=== PATIENT | male | born 1945 | race Caucasian/White ===

== ENCOUNTER 2016-12-20 20:00 | Emergency (ER) | payer OTHER ==
[~2016-12-20] VITALS: Ht 185.4 cm; Wt 118.2 kg
[~2016-12-20 20:00] MED LIST: COMBIH IH; PANT40TA25 PO
[2016-12-20] MEDS ORDERED: GuaiFENesin/D-METHORPHAN [SUGAR-FREE] 200-20MG/10 ML SYRUP UDCUP PO ONE (21:30)
[2016-12-20] MEDS ORDERED: OSELTAMIVIR PHOSPHATE 75 MG CAPSULE PO ONE (21:30)
[2016-12-20] MEDS ORDERED: ACETAMINOPHEN 325 MG TABLET PO ONE (21:30)
[2016-12-20 21:39] VITALS: BP 144/64
[2016-12-20 21:54] LABS: INFLUENZA TYPE B NEGATIVE FOR TYPE B (NEGATIVE)
== END 2016-12-20 22:27 | disposition home or self-care (01) ==
LOC: EMS 20:02
DX: J06.9 Acute upper respiratory infection, unspecified (principal); R68.83 Chills (without fever); M79.1 Myalgia; J44.9 Chronic obstructive pulmonary disease, unspecified; Z87.891 Personal history of nicotine dependence
CPT/HCPCS: 87804; 99284

== ENCOUNTER 2017-01-01 13:03 | Inpatient (IN) | payer MEDICARE, OTHER ==
[~2017-01-01] VITALS: Ht 198.1 cm; Wt 99.8 kg
[~2017-01-01 13:03] MED LIST changes: -PANT40TA25 PO
[2017-01-01] MEDS ORDERED: DILTIAZEM HCL 5 MG/ML 5 ML VIAL IVP ONE ×2 (13:15→14:00)
[2017-01-01] MEDS ORDERED: GUAIFCF5L PO (13:17)
[2017-01-01 13:30] LABS: HEMATOCRIT 41.4 % (41-53); HEMOGLOBIN 13.6 g/dL (13.5-17.5); MEAN CORPUSCULAR HEMOGLOBIN 29.3 pg (26.0-34.0); MEAN CORPUSCULAR HGB CONC 32.9 G/dL (31.0-37.0); MEAN CORPUSCULAR VOLUME 89 fL (80-100); PLATELET COUNT (AUTO) 306 K/uL (150-450); RED BLOOD CELL COUNT(AUTO) 4.65 MIL/uL (4.50-5.90); RED CELL DISTRIBUTION WIDTH 13.9 % (11.5-14.5)
[2017-01-01 13:41] LABS: ANION GAP 11 mmol/L (8-16); CALCIUM, TOTAL 8.7 mg/dL (8.8-10.5); CARBON DIOXIDE 25 mmol/L (22-29); CHLORIDE 103 mmol/L (98-107); CREATININE 1.95 mg/dL (0.60-1.30); GLOMERULAR FILTR. RATE CALC 34 mL/min (>60); POTASSIUM 4.5 mmol/L (3.5-5.1); SODIUM SERUM 139 mmol/L (136-145); UREA NITROGEN, BLOOD 27 mg/dL (7-18)
[2017-01-01 13:44] LABS: INR 1.1 (0.9-1.1); PROTHROMBIN TIME 11.2 SEC (9.4-11.6)
[2017-01-01] MEDS: DILTIAZEM HCL 125 MG in DEXTROSE 5%-WATER 100 ML IV PRN ×2 (13:51→23:56)
[2017-01-01 13:59] LABS: BAND NEUTROPHILS % (MANUAL) 2 % (1-5); EOSINOPHILS % (MANUAL) 1 % (1-6); LYMPHOCYTES % (MANUAL) 7 % (22-44); TOTAL CELLS COUNTED 100
[2017-01-01 14:00] LABS: B-TYPE NATRIURETIC PEPTIDE 76 pg/mL (0-100)
[2017-01-01] MEDS ORDERED: SODIUM CHLORIDE 0.9% 500 ML IV ONE ×2 (14:15→16:15)
[2017-01-01 14:16] LABS: ALANINE AMINOTRANSFERASE 21 U/L (12-78); ALBUMIN 3.4 g/dL (3.4-5.0); ASPARTATE AMINOTRANSFERASE 16 U/L (15-37); BILIRUBIN,TOTAL 0.6 mg/dL (0.1-1.0); CREATINE KINASE MB 2.8 ng/mL (0-5); CREATINE KINASE, TOTAL 76 U/L (39-308); TOTAL PROTEIN, SERUM 7.6 g/dL (6.4-8.2)
[2017-01-01 14:39] LABS: INFLUENZA TYPE B NEGATIVE FOR TYPE B (NEGATIVE)
[2017-01-01] MEDS ORDERED: CefTRIAXone 1 GM/DEXTROSE 50 ML IV ONE (15:45)
[2017-01-01] MEDS ORDERED: AZITHROMYCIN 500 MG/NS 250 ML IV ONE (15:45)
[2017-01-01] MEDS ORDERED: ZOLPIDEM TARTRATE 10 MG TABLET PO PRN (16:15)
[2017-01-01] MEDS ORDERED: ALBUTEROL SULFATE 2.5 MG/0.5 ML NEB SOLUTION NEB PRN (16:15)
[2017-01-01] MEDS ORDERED: OxyCODONE HCL/ACETAMINOPHEN 5-325 MG TABLET PO PRN (16:15)
[2017-01-01] MEDS ORDERED: ASPIRIN 81 MG CHEWABLE TABLET PO ONE (16:15)
[2017-01-01] MEDS ORDERED: ACETAMINOPHEN 325 MG TABLET PO PRN (16:15)
[2017-01-01] MEDS: DEXTROSE 5%-0.45% SODIUM CHL 1,000 ML IV SCH (16:34)
[2017-01-01 16:42] LABS: APPEARANCE,URINE CLEAR (CLEAR); GLUCOSE, URINE (UA) NEGATIVE (NEGATIVE); KETONES,URINE NEGATIVE (NEGATIVE); LEUKOCYTE ESTERASE ,URINE NEGATIVE (NEGATIVE); OCCULT BLOOD,URINE TRACE (NEGATIVE); PH,URINE 5.5 (5.0-8.0); PROTEIN,URINE TRACE (NEGATIVE)
[2017-01-01 16:45] LABS: ADD UA MICROSCOPIC YES
[2017-01-01] MEDS: ALBUTEROL SULFATE 2.5 MG/0.5 ML NEB SOLUTION NEB SCH ×2 (16:50→19:29)
[2017-01-01] MEDS: IPRATROPIUM BROMIDE 0.5 MG/2.5 ML NEB SOLUTION NEB SCH ×2 (16:51→19:29)
[2017-01-01 16:59] LABS: RBC,URINE 0-2 /HPF (0-2); WBC,URINE None Seen /HPF (0-5)
[2017-01-01 21:04] VITALS: BP 144/66
[2017-01-01] MEDS ORDERED: ClonazePAM 1 MG TABLET PO ONE (22:30)
[2017-01-01] MEDS ORDERED: GUAI600T35 PO (22:32)
[2017-01-01] MEDS ORDERED: ACET-784 PO (22:32)
[2017-01-01] MEDS ORDERED: OSEL75CA17 PO (22:32)
[2017-01-01] MEDS ORDERED: GUAIF600 PO (22:33)
[2017-01-01] MEDS: HEPARIN SODIUM,PORCINE 5,000 UNITS/ML VIAL SQ SCH (23:28)
[2017-01-01] MEDS: GuaiFENesin/D-METHORPHAN [SUGAR-FREE] 200-20MG/10 ML SYRUP UDCUP PO PRN (23:56)
[2017-01-02] VITALS (7 sets, daily range): BP systolic 106–136; BP diastolic 54–74
[2017-01-02] MEDS ORDERED: GuaiFENesin/D-METHORPHAN [SUGAR-FREE] 200-20MG/10 ML SYRUP UDCUP PO SCH
[2017-01-02] MEDS ORDERED: -PHARMACY VACCINE NOTE- MISC ONE ×2 (00:15)
[2017-01-02] MEDS ORDERED: INFLUENZA VIRUS VACCINE QVS 2016-17 (3YR+)/PF 60 MCG/0.5 ML SYRINGE IM ONE (00:15)
[2017-01-02] MEDS ORDERED: PNEUMOCOCCAL VACCINE POLYVALENT 0.5 ML VIAL [PPSV23] IM ONE (00:15)
[2017-01-02] MEDS: IPRATROPIUM BROMIDE 0.5 MG/2.5 ML NEB SOLUTION NEB SCH ×4 (02:16→20:43)
[2017-01-02] MEDS: ALBUTEROL SULFATE 2.5 MG/0.5 ML NEB SOLUTION NEB SCH ×4 (02:16→20:43)
[2017-01-02] MEDS: DEXTROSE 5%-0.45% SODIUM CHL 1,000 ML IV SCH ×2 (04:31→18:11)
[2017-01-02] MEDS: GuaiFENesin/D-METHORPHAN [SUGAR-FREE] 200-20MG/10 ML SYRUP UDCUP PO PRN ×2 (06:56→20:16)
[2017-01-02 07:39] LABS: BASOPHILS # (AUTO) 0.05 K/uL (0.00-0.20); BASOPHILS % (AUTO) 0.3 % (0.0-2.0); EOSINOPHILS # (AUTO) 0.18 K/uL (0.00-0.70); EOSINOPHILS % (AUTO) 1.12 % (1.0-6.0); HEMATOCRIT 35.2 % (41-53); HEMOGLOBIN 11.7 g/dL (13.5-17.5); LYMPHOCYTES # (AUTO) 1.3 K/uL (1.0-4.8); LYMPHOCYTES % (AUTO) 7.9 % (22.0-44.0); MEAN CORPUSCULAR HGB CONC 33.3 G/dL (31.0-37.0); MEAN CORPUSCULAR VOLUME 90 fL (80-100); NEUTROPHILS # (AUTO) 13.9 K/uL (1.8-7.7); NEUTROPHILS % (AUTO) 84.7 % (40.0-70.0); PLATELET COUNT (AUTO) 406 K/uL (150-450); RED BLOOD CELL COUNT(AUTO) 3.91 MIL/uL (4.50-5.90); RED CELL DISTRIBUTION WIDTH 13.7 % (11.5-14.5); WHITE BLOOD COUNT (AUTO) 16.4 K/uL (4.5-11.0)
[2017-01-02 08:07] LABS: ALBUMIN 2.9 g/dL (3.4-5.0); BILIRUBIN,TOTAL 0.7 mg/dL (0.1-1.0); CALCIUM, TOTAL 8.3 mg/dL (8.8-10.5); CREATININE 1.72 mg/dL (0.60-1.30); POTASSIUM 3.7 mmol/L (3.5-5.1); TOTAL PROTEIN, SERUM 6.8 g/dL (6.4-8.2)
[2017-01-02 08:52] LABS: THYROID STIMULATING HORMONE 0.57 uIU/mL (0.36-3.74)
[2017-01-02] MEDS: PANTOPRAZOLE SODIUM 40 MG DR TABLET PO SCH (09:59)
[2017-01-02] MEDS: HEPARIN SODIUM,PORCINE 5,000 UNITS/ML VIAL SQ SCH ×3 (09:59→23:33)
[2017-01-02] MEDS: DILTIAZEM HCL CD 180 MG ER CAPSULE PO SCH (10:33)
[2017-01-02] MEDS: DILTIAZEM HCL 125 MG in DEXTROSE 5%-WATER 100 ML IV SCH ×2 (10:34→21:30)
[2017-01-02] MEDS: CefTRIAXone 1 GM/DEXTROSE 50 ML IV SCH (16:24)
[2017-01-02] MEDS ORDERED: MORPHINE SULFATE 100 MG/NS/PF 100 ML IV PRN (19:57)
[2017-01-02] MEDS: ClonazePAM 1 MG TABLET PO SCH (22:27)
[2017-01-03] MEDS: IPRATROPIUM BROMIDE 0.5 MG/2.5 ML NEB SOLUTION NEB SCH ×4 (02:16→20:00)
[2017-01-03] MEDS: ALBUTEROL SULFATE 2.5 MG/0.5 ML NEB SOLUTION NEB SCH ×2 (02:16→09:08)
[2017-01-03] MEDS: GuaiFENesin/D-METHORPHAN [SUGAR-FREE] 200-20MG/10 ML SYRUP UDCUP PO PRN ×4 (03:18→23:20)
[2017-01-03 04:51] VITALS: BP 107/42
[2017-01-03] MEDS: DEXTROSE 5%-0.45% SODIUM CHL 1,000 ML IV SCH (06:15)
[2017-01-03 07:34] VITALS: BP 126/71
[2017-01-03 08:02] LABS: BASOPHILS # (AUTO) 0.03 K/uL (0.00-0.20); BASOPHILS % (AUTO) 0.2 % (0.0-2.0); EOSINOPHILS # (AUTO) 0.35 K/uL (0.00-0.70); EOSINOPHILS % (AUTO) 3.03 % (1.0-6.0); HEMATOCRIT 35.6 % (41-53); HEMOGLOBIN 11.7 g/dL (13.5-17.5); LYMPHOCYTES # (AUTO) 1.1 K/uL (1.0-4.8); LYMPHOCYTES % (AUTO) 9.9 % (22.0-44.0); MEAN CORPUSCULAR HEMOGLOBIN 29.5 pg (26.0-34.0); MEAN CORPUSCULAR HGB CONC 32.9 G/dL (31.0-37.0); MEAN CORPUSCULAR VOLUME 90 fL (80-100); MONOCYTES # (AUTO) 0.8 K/uL (0.1-1.0); MONOCYTES % (AUTO) 7.1 % (2.0-9.0); NEUTROPHILS # (AUTO) 9.2 K/uL (1.8-7.7); NEUTROPHILS % (AUTO) 79.7 % (40.0-70.0); PLATELET COUNT (AUTO) 399 K/uL (150-450); RED BLOOD CELL COUNT(AUTO) 3.96 MIL/uL (4.50-5.90); RED CELL DISTRIBUTION WIDTH 14.2 % (11.5-14.5); WHITE BLOOD COUNT (AUTO) 11.5 K/uL (4.5-11.0)
[2017-01-03 08:29] LABS: ALBUMIN 2.8 g/dL (3.4-5.0); BILIRUBIN,TOTAL 0.3 mg/dL (0.1-1.0); CALCIUM, TOTAL 8.7 mg/dL (8.8-10.5); CREATININE 1.72 mg/dL (0.60-1.30); POTASSIUM 4.2 mmol/L (3.5-5.1); TOTAL PROTEIN, SERUM 6.6 g/dL (6.4-8.2)
[2017-01-03] MEDS: HEPARIN SODIUM,PORCINE 5,000 UNITS/ML VIAL SQ SCH ×3 (09:19→23:16)
[2017-01-03] MEDS: PANTOPRAZOLE SODIUM 40 MG DR TABLET PO SCH (09:19)
[2017-01-03] MEDS: DILTIAZEM HCL CD 180 MG ER CAPSULE PO SCH (09:19)
[2017-01-03 11:31] VITALS: BP 126/80
[2017-01-03 15:37] VITALS: BP 122/78
[2017-01-03] MEDS: CefTRIAXone 1 GM/DEXTROSE 50 ML IV SCH (17:00)
[2017-01-03 19:35] VITALS: BP 129/69
[2017-01-03] MEDS: LISINOPRIL 5 MG TABLET PO SCH (20:05)
[2017-01-03] MEDS: ClonazePAM 1 MG TABLET PO SCH (20:05)
[2017-01-04] VITALS (7 sets, daily range): BP systolic 94–150; BP diastolic 48–94
[2017-01-04] MEDS: IPRATROPIUM BROMIDE 0.5 MG/2.5 ML NEB SOLUTION NEB SCH ×4 (02:00→20:49)
[2017-01-04] MEDS: GuaiFENesin/D-METHORPHAN [SUGAR-FREE] 200-20MG/10 ML SYRUP UDCUP PO PRN ×3 (05:59→23:32)
[2017-01-04 06:36] LABS: BASOPHILS % (AUTO) 0.4 % (0.0-2.0); EOSINOPHILS % (AUTO) 5.9 % (1.0-6.0); HEMATOCRIT 35.6 % (41-53); HEMOGLOBIN 11.6 g/dL (13.5-17.5); LYMPHOCYTES # (AUTO) 1.3 K/uL (1.0-4.8); LYMPHOCYTES % (AUTO) 11.4 % (22.0-44.0); MEAN CORPUSCULAR HEMOGLOBIN 29.4 pg (26.0-34.0); MEAN CORPUSCULAR HGB CONC 32.5 G/dL (31.0-37.0); MEAN CORPUSCULAR VOLUME 90 fL (80-100); MONOCYTES # (AUTO) 0.9 K/uL (0.1-1.0); MONOCYTES % (AUTO) 7.8 % (2.0-9.0); NEUTROPHILS # (AUTO) 8.5 K/uL (1.8-7.7); NEUTROPHILS % (AUTO) 74.5 % (40.0-70.0); PLATELET COUNT (AUTO) 411 K/uL (150-450); RED BLOOD CELL COUNT(AUTO) 3.93 MIL/uL (4.50-5.90); RED CELL DISTRIBUTION WIDTH 13.4 % (11.5-14.5); WHITE BLOOD COUNT (AUTO) 11.4 K/uL (4.5-11.0)
[2017-01-04 07:15] LABS: ALBUMIN 2.7 g/dL (3.4-5.0); BILIRUBIN,TOTAL 0.3 mg/dL (0.1-1.0); CALCIUM, TOTAL 8.8 mg/dL (8.8-10.5); CREATININE 1.82 mg/dL (0.60-1.30); MAGNESIUM 1.9 mg/dL (1.80-2.40); POTASSIUM 4.4 mmol/L (3.5-5.1); TOTAL PROTEIN, SERUM 6.6 g/dL (6.4-8.2)
[2017-01-04] MEDS: PANTOPRAZOLE SODIUM 40 MG DR TABLET PO SCH (08:52)
[2017-01-04] MEDS: DILTIAZEM HCL CD 120 MG ER CAPSULE PO SCH (08:53)
[2017-01-04] MEDS: HEPARIN SODIUM,PORCINE 5,000 UNITS/ML VIAL SQ SCH ×3 (08:54→23:32)
[2017-01-04] MEDS ORDERED: CLON1TAB PO (13:11)
[2017-01-04] MEDS ORDERED: DILT120C3 PO (13:12)
[2017-01-04] MEDS ORDERED: LISI-660 PO (13:14)
[2017-01-04] MEDS ORDERED: CIP250 PO (13:16)
[2017-01-04] MEDS ORDERED: IPRAHFA IH (13:17)
[2017-01-04] MEDS: CefTRIAXone 1 GM/DEXTROSE 50 ML IV SCH (15:19)
[2017-01-04] MEDS: LISINOPRIL 5 MG TABLET PO SCH (19:42)
[2017-01-04] MEDS: ClonazePAM 1 MG TABLET PO SCH (19:42)
[2017-01-05] MEDS: IPRATROPIUM BROMIDE 0.5 MG/2.5 ML NEB SOLUTION NEB SCH ×3 (02:55→14:00)
[2017-01-05] MEDS: GuaiFENesin/D-METHORPHAN [SUGAR-FREE] 200-20MG/10 ML SYRUP UDCUP PO PRN ×2 (03:37→08:36)
[2017-01-05 04:17] VITALS: BP 98/55
[2017-01-05 06:38] LABS: BASOPHILS % (AUTO) 0.3 % (0.0-2.0); EOSINOPHILS % (AUTO) 4.8 % (1.0-6.0); HEMOGLOBIN 12.5 g/dL (13.5-17.5); LYMPHOCYTES # (AUTO) 1.8 K/uL (1.0-4.8); LYMPHOCYTES % (AUTO) 17.3 % (22.0-44.0); MEAN CORPUSCULAR HEMOGLOBIN 29.1 pg (26.0-34.0); MEAN CORPUSCULAR VOLUME 91 fL (80-100); MONOCYTES # (AUTO) 0.9 K/uL (0.1-1.0); NEUTROPHILS # (AUTO) 7.4 K/uL (1.8-7.7); NEUTROPHILS % (AUTO) 69.6 % (40.0-70.0); PLATELET COUNT (AUTO) 492 K/uL (150-450); RED CELL DISTRIBUTION WIDTH 13.5 % (11.5-14.5); WHITE BLOOD COUNT (AUTO) 10.7 K/uL (4.5-11.0)
[2017-01-05 07:37] LABS: ALBUMIN 3.1 g/dL (3.4-5.0); BILIRUBIN,TOTAL 0.5 mg/dL (0.1-1.0); POTASSIUM 4.3 mmol/L (3.5-5.1); TOTAL PROTEIN, SERUM 7.4 g/dL (6.4-8.2)
[2017-01-05 08:00] VITALS: BP 114/61
[2017-01-05] MEDS: DILTIAZEM HCL CD 120 MG ER CAPSULE PO SCH (08:36)
[2017-01-05] MEDS: PANTOPRAZOLE SODIUM 40 MG DR TABLET PO SCH (08:36)
[2017-01-05] MEDS: HEPARIN SODIUM,PORCINE 5,000 UNITS/ML VIAL SQ SCH (08:36)
[2017-01-05] MEDS ORDERED: DEXT15SY3 PO (13:12)
== END 2017-01-05 14:00 | disposition home or self-care (01) | DRG 872 ==
LOC: EMS 13:04 → 5N 18:24 → 6N 01-04 18:27
PROVIDERS: ADMIT Hospitalist; ATTEND Hospitalist
PROC: 3E0234Z Introduction of Serum, Toxoid and Vaccine into Muscle, Percutaneous Approach (ICD-10-PCS; principal; 2017-01-02)
DX: A41.9 Sepsis, unspecified organism (principal); J44.1 Chronic obstructive pulmonary disease with (acute) exacerbation; E44.1 Mild protein-calorie malnutrition; I48.91 Unspecified atrial fibrillation; N18.9 Chronic kidney disease, unspecified; I49.3 Ventricular premature depolarization; E88.09 Other disorders of plasma-protein metabolism, not elsewhere classified; D64.9 Anemia, unspecified; Z87.891 Personal history of nicotine dependence; Z23 Encounter for immunization; Z98.890 Other specified postprocedural states; Z87.01 Personal history of pneumonia (recurrent); Z68.25 Body mass index [BMI] 25.0-25.9, adult
CPT/HCPCS: 82607; 82746; 83540; 83550; 83735; 84443; 85379; 87040; 87804; 90471; 93005; 93306; 94640; 96361; 96365; 96368; 96374; 99291; J0456; J0696; J1644; J3490; J7040; J7060

== ENCOUNTER 2017-01-23 17:50 | Inpatient (IN) | payer OTHER ==
[~2017-01-23] VITALS: Ht 185.4 cm; Wt 92.8 kg
[~2017-01-23 17:50] MED LIST changes: +CIP250 PO; +CLON1TAB PO; -COMBIH IH; +DEXT15SY3 PO; +DILT120C3 PO; +GUAIF600 PO; +IPRAHFA IH; +LISI-660 PO; +OSEL75CA17 PO
[2017-01-23] MEDS ORDERED: ONDANSETRON HCL 4 MG/2 ML VIAL IVP ONE ×2 (19:00→19:15)
[2017-01-23] MEDS ORDERED: SODIUM CHLORIDE 0.9% 1,000 ML IV ONE (19:00)
[2017-01-23 19:03] LABS: BASOPHILS # (AUTO) 0.07 K/uL (0.00-0.20); BASOPHILS % (AUTO) 0.7 % (0.0-2.0); EOSINOPHILS # (AUTO) 0.09 K/uL (0.00-0.70); EOSINOPHILS % (AUTO) 0.86 % (1.0-6.0); HEMATOCRIT 44.5 % (41-53); HEMOGLOBIN 14.7 g/dL (13.5-17.5); LYMPHOCYTES # (AUTO) 1.2 K/uL (1.0-4.8); LYMPHOCYTES % (AUTO) 12.2 % (22.0-44.0); MEAN CORPUSCULAR HEMOGLOBIN 29.4 pg (26.0-34.0); MEAN CORPUSCULAR HGB CONC 33.1 G/dL (31.0-37.0); MEAN CORPUSCULAR VOLUME 89 fL (80-100); MONOCYTES # (AUTO) 0.7 K/uL (0.1-1.0); MONOCYTES % (AUTO) 6.7 % (2.0-9.0); NEUTROPHILS % (AUTO) 79.5 % (40.0-70.0); PLATELET COUNT (AUTO) 441 K/uL (150-450); RED BLOOD CELL COUNT(AUTO) 5.02 MIL/uL (4.50-5.90); RED CELL DISTRIBUTION WIDTH 14.2 % (11.5-14.5)
[2017-01-23 19:13] LABS: CALCIUM, TOTAL 9.3 mg/dL (8.8-10.5); CREATININE 1.98 mg/dL (0.60-1.30); POTASSIUM 4.2 mmol/L (3.5-5.1)
[2017-01-23] MEDS ORDERED: SODIUM CHLORIDE 0.9% 500 ML IV ONE (19:15)
[2017-01-23 19:21] LABS: ALBUMIN 4.2 g/dL (3.4-5.0); TOTAL PROTEIN, SERUM 7.9 g/dL (6.4-8.2)
[2017-01-23] MEDS ORDERED: 0.9% SODIUM CHLORIDE 10 ML SYRINGE IVP PRN (21:15)
[2017-01-23] MEDS ORDERED: ONDANSETRON HCL 4 MG/2 ML VIAL IVP PRN ×2 (21:15→22:45)
[2017-01-23] MEDS ORDERED: DEXTROSE 5%-0.45% SODIUM CHL 1,000 ML IV ONE (21:15)
[2017-01-23] MEDS ORDERED: ACETAMINOPHEN 325 MG TABLET PO PRN ×2 (21:15→22:45)
[2017-01-23 21:16] LABS: INFLUENZA TYPE B NEGATIVE FOR TYPE B (NEGATIVE)
[2017-01-23] MEDS ORDERED: GuaiFENesin/D-METHORPHAN/PHENYLEPH 5 ML LIQUID ORAL.SYG PO PRN (22:45)
[2017-01-23] MEDS ORDERED: ALBUTEROL SULFATE 2.5 MG/0.5 ML NEB SOLUTION NEB PRN (22:45)
[2017-01-23] MEDS ORDERED: BISACODYL 10 MG RECTAL RECTAL SUPPOSITORY PR PRN (22:45)
[2017-01-23] MEDS ORDERED: ZOLPIDEM TARTRATE 5 MG TABLET PO PRN (22:45)
[2017-01-23] MEDS ORDERED: HYDROCODONE/ACETAMINOPHEN 5-325 MG TABLET PO PRN (22:45)
[2017-01-23] MEDS ORDERED: IPRATROPIUM BROMIDE 0.5 MG/2.5 ML NEB SOLUTION NEB PRN (22:45)
[2017-01-23] MEDS ORDERED: MAGNESIUM HYDROXIDE SUSPENSION 30 ML UDCUP PO PRN (22:45)
[2017-01-23 22:57] LABS: APPEARANCE,URINE CLEAR (CLEAR); GLUCOSE, URINE (UA) NEGATIVE (NEGATIVE); KETONES,URINE NEGATIVE (NEGATIVE); LEUKOCYTE ESTERASE ,URINE NEGATIVE (NEGATIVE); OCCULT BLOOD,URINE NEGATIVE (NEGATIVE); PROTEIN,URINE NEGATIVE (NEGATIVE)
[2017-01-23 23:06] LABS: ADD UA MICROSCOPIC NO
[2017-01-23 23:54] VITALS: BP 132/87
[2017-01-24] MEDS ORDERED: ClonazePAM 1 MG TABLET PO SCH
[2017-01-24 05:05] VITALS: BP 133/73
[2017-01-24 06:06] LABS: BASOPHILS % (AUTO) 0.4 % (0.0-2.0); EOSINOPHILS % (AUTO) 4.2 % (1.0-6.0); HEMATOCRIT 41.6 % (41-53); HEMOGLOBIN 13.4 g/dL (13.5-17.5); LYMPHOCYTES # (AUTO) 1.7 K/uL (1.0-4.8); LYMPHOCYTES % (AUTO) 19.2 % (22.0-44.0); MEAN CORPUSCULAR HEMOGLOBIN 29.1 pg (26.0-34.0); MEAN CORPUSCULAR HGB CONC 32.2 G/dL (31.0-37.0); MEAN CORPUSCULAR VOLUME 90 fL (80-100); MONOCYTES # (AUTO) 0.9 K/uL (0.1-1.0); MONOCYTES % (AUTO) 10.2 % (2.0-9.0); NEUTROPHILS # (AUTO) 5.8 K/uL (1.8-7.7); PLATELET COUNT (AUTO) 433 K/uL (150-450); WHITE BLOOD COUNT (AUTO) 8.8 K/uL (4.5-11.0)
[2017-01-24 07:33] LABS: ALBUMIN 3.6 g/dL (3.4-5.0); BILIRUBIN,TOTAL 0.9 mg/dL (0.1-1.0); CALCIUM, TOTAL 8.1 mg/dL (8.8-10.5); CREATININE 1.92 mg/dL (0.60-1.30); MAGNESIUM 2.3 mg/dL (1.80-2.40); PHOSPHORUS 3.7 mg/dL (2.5-4.9); POTASSIUM 4.1 mmol/L (3.5-5.1)
[2017-01-24 08:05] VITALS: BP 121/73
[2017-01-24] MEDS ORDERED: DILTIAZEM HCL CD 120 MG ER CAPSULE PO SCH (09:00)
[2017-01-24] MEDS ORDERED: LISINOPRIL 5 MG TABLET PO SCH (09:00)
[2017-01-24] MEDS ORDERED: HEPARIN SODIUM,PORCINE 5,000 UNITS/ML VIAL SQ SCH (09:00)
[2017-01-24] MEDS ORDERED: PANTOPRAZOLE SODIUM 40 MG DR TABLET PO SCH (09:00)
[2017-01-24 12:03] VITALS: BP 111/68
== END 2017-01-24 14:37 | disposition home or self-care (01) | DRG 190 ==
LOC: EMS 17:51 → 6N 22:10
PROVIDERS: ADMIT Internal Medicine; ATTEND Internal Medicine
DX: J44.1 Chronic obstructive pulmonary disease with (acute) exacerbation (principal); N17.0 Acute kidney failure with tubular necrosis; E86.0 Dehydration; F41.1 Generalized anxiety disorder; N18.3 Chronic kidney disease, stage 3 (moderate); I12.9 Hypertensive chronic kidney disease with stage 1 through stage 4 chronic kidney disease, or unspecified chronic kidney disease; F29 Unspecified psychosis not due to a substance or known physiological condition; R11.2 Nausea with vomiting, unspecified; Z79.51 Long term (current) use of inhaled steroids; Z79.899 Other long term (current) drug therapy; Z79.2 Long term (current) use of antibiotics; Z98.890 Other specified postprocedural states; Z87.891 Personal history of nicotine dependence; Z87.01 Personal history of pneumonia (recurrent)
CPT/HCPCS: 83605; 83735; 84100; 87040; 87081; 87804; 93005; 96361; 96374; 99285; J1644; J2405; J7030; J7040

== ENCOUNTER 2019-08-25 00:05 | Inpatient (IN) | payer MEDICAID, OTHER ==
[~2019-08-25] VITALS: Ht 182.9 cm; Wt 97.6 kg
[~2019-08-25 00:05] MED LIST changes: -CIP250 PO; +DILT-39 PO; -DILT120C3 PO; -LISI-660 PO; -OSEL75CA17 PO
[2019-08-25] MEDS ORDERED: 0.9% SODIUM CHLORIDE 5 ML NEB SOLUTION NEB ONE (00:22)
[2019-08-25] MEDS ORDERED: IPRATROPIUM BROMIDE 0.5 MG/2.5 ML NEB SOLUTION NEB ONE ×3 (00:22→00:30)
[2019-08-25] MEDS ORDERED: ALBUTEROL SULFATE 2.5 MG/0.5 ML NEB SOLUTION NEB ONE ×2 (00:22→00:30)
[2019-08-25] MEDS ORDERED: ALBUTEROL SULFATE 5 MG/ML 20 ML NEB SOLN [BULK] NEB ONE (00:30)
[2019-08-25 00:43] LABS: BASOPHILS % (AUTO) 0.4 % (0.0-2.0); EOSINOPHILS % (AUTO) 2.1 % (1.0-6.0); HEMATOCRIT 38.8 % (41-53); HEMOGLOBIN 12.7 g/dL (13.5-17.5); LYMPHOCYTES # (AUTO) 2.7 K/uL (1.0-4.8); LYMPHOCYTES % (AUTO) 13.3 % (22.0-44.0); MEAN CORPUSCULAR HEMOGLOBIN 28.6 pg (26.0-34.0); MEAN CORPUSCULAR HGB CONC 32.7 G/dL (31.0-37.0); MEAN CORPUSCULAR VOLUME 88 fL (80-100); MONOCYTES # (AUTO) 1.6 K/uL (0.1-1.0); NEUTROPHILS # (AUTO) 15.3 K/uL (1.8-7.7); NEUTROPHILS % (AUTO) 76.2 % (40.0-70.0); PLATELET COUNT (AUTO) 429 K/uL (150-450); RED BLOOD CELL COUNT(AUTO) 4.44 MIL/uL (4.50-5.90)
[2019-08-25 00:57] LABS: ALBUMIN 3.1 g/dL (3.4-5.0); BILIRUBIN,TOTAL 0.6 mg/dL (0.1-1.0); CALCIUM, TOTAL 8.6 mg/dL (8.8-10.5); CREATININE 2.18 mg/dL (0.60-1.30); POTASSIUM 4.3 mmol/L (3.5-5.1)
[2019-08-25 00:58] LABS: INR 1.2 (0.9-1.1); PROTHROMBIN TIME 11.7 SEC (9.4-11.6)
[2019-08-25] MEDS ORDERED: AZITHROMYCIN 500 MG/NS 250 ML IV ONE (01:15)
[2019-08-25] MEDS ORDERED: CefTRIAXone 1 GM/DEXTROSE 50 ML IV ONE (01:15)
[2019-08-25] MEDS ORDERED: APIX5TAB PO (01:20)
[2019-08-25] MEDS ORDERED: DIGO0.12 PO (01:20)
[2019-08-25] MEDS ORDERED: TIOT185 IH (01:20)
[2019-08-25] MEDS ORDERED: POTA20PA41 PO (01:20)
[2019-08-25] MEDS ORDERED: FURO20 PO (01:20)
[2019-08-25] MEDS ORDERED: DILT240C97 PO (01:20)
[2019-08-25] MEDS ORDERED: MethylPREDNISolone SOD SUCC 125 MG/2 ML VIAL IVP ONE (01:30)
[2019-08-25] MEDS ORDERED: DILTIAZEM HCL 5 MG/ML 5 ML VIAL IVP ONE ×2 (01:45→19:30)
[2019-08-25] MEDS ORDERED: 0.9% SODIUM CHLORIDE 10 ML SYRINGE IVP PRN (02:00)
[2019-08-25] MEDS ORDERED: ACETAMINOPHEN 325 MG TABLET PO PRN ×2 (02:00→19:30)
[2019-08-25 02:46] LABS: APPEARANCE,URINE CLEAR (CLEAR); BILIRUBIN,URINE NEGATIVE (NEGATIVE); GLUCOSE, URINE (UA) NEGATIVE (NEGATIVE); KETONES,URINE NEGATIVE (NEGATIVE); LEUKOCYTE ESTERASE ,URINE NEGATIVE (NEGATIVE); NITRATE,URINE NEGATIVE (NEGATIVE); OCCULT BLOOD,URINE LARGE (NEGATIVE); PROTEIN,URINE NEGATIVE (NEGATIVE); UROBILINOGEN,URINE 0.2 mg/dL (<=1.0)
[2019-08-25 03:02] LABS: BACTERIA,URINE None Seen /HPF (None Seen); SQUAMOUS EPITHELIAL CELL,UR Rare /LPF (None Seen)
[2019-08-25] MEDS: LORazepam 2 MG/ML VIAL IVP PRN ×4 (03:55→20:57)
[2019-08-25 04:00] VITALS: BP 130/73
[2019-08-25 07:50] LABS: ABG A-A DIFF O2 176.6 mmHg (10-20.0); ABG BASE EXCESS -2.8 mmol/L (-2.0-3.0); ABG CARBOXYHEMOGLOBIN 0.4 % (0.0-1.5); ABG HCO3 22.3 mmol/L (22.0-26.0); ABG METHEMOGLOBIN 0.2 % (0.0-1.5); ABG OXYGEN CONTENT 15.8 mL/dL (15.0-23.0); ABG OXYGEN SATURATION 92.7 % (95.0-98.0); ABG OXYHEMOGLOBIN 92.1 % (94.0-100.0); ABG PCO2 38 mmHg (35-45); ABG PH 7.384 (7.35-7.450); ABG TOTAL HEMOGLOBIN 12.2 G/dL (12.0-18.0); PO2, ARTERIAL BG 65.2 mmHg (75.0-83.0); SOURCE, BLOOD GAS ARTERIAL; TEMPERATURE, FAHRENHEIT, BG 98.1 FAHREN (96.0-98.6)
[2019-08-25 07:51] LABS: O2 DEVICE,BLOOD GAS VENTI MASK (ROOM AIR); SITE, BLOOD GAS RT RADIAL
[2019-08-25 08:00] VITALS: BP 114/52
[2019-08-25] MEDS ORDERED: SODIUM CHLORIDE 0.9% 250 ML IV ONE (10:37)
[2019-08-25] MEDS: DOXYCYCLINE HYCLATE 100 MG in DEXTROSE 5%-WATER 100 ML IV SCH ×2 (10:41→21:31)
[2019-08-25] MEDS: IPRATROPIUM BROMIDE 0.5 MG/2.5 ML NEB SOLUTION NEB SCH ×4 (10:42→23:00)
[2019-08-25] MEDS: ALBUTEROL SULFATE 2.5 MG/0.5 ML NEB SOLUTION NEB SCH ×4 (10:42→23:00)
[2019-08-25] MEDS: MethylPREDNISolone SOD SUCC 125 MG/2 ML VIAL IVP SCH ×2 (11:58→17:38)
[2019-08-25 12:00] VITALS: BP 109/59
[2019-08-25] MEDS ORDERED: DIGO125T84 PO (13:46)
[2019-08-25 16:00] VITALS: BP 113/66
[2019-08-25] MEDS ORDERED: IPRATROPIUM BROMIDE 0.5 MG/2.5 ML NEB SOLUTION NEB PRN (19:30)
[2019-08-25] MEDS ORDERED: DIGOXIN 250 MCG/ML 2 ML AMP IVP ONE (19:30)
[2019-08-25] MEDS ORDERED: BISACODYL 10 MG RECTAL RECTAL SUPPOSITORY PR PRN (19:30)
[2019-08-25] MEDS ORDERED: HYDROCODONE/ACETAMINOPHEN 5-325 MG TABLET PO PRN (19:30)
[2019-08-25] MEDS ORDERED: MORPHINE SULFATE 2 MG/ML SYRINGE IVP PRN (19:30)
[2019-08-25] MEDS ORDERED: MAGNESIUM HYDROXIDE SUSPENSION 30 ML UDCUP PO PRN (19:30)
[2019-08-25] MEDS ORDERED: ALBUTEROL SULFATE 2.5 MG/0.5 ML NEB SOLUTION NEB PRN (19:30)
[2019-08-25 20:00] VITALS: BP 121/59
[2019-08-25] MEDS: DOCUSATE SODIUM 100 MG CAPSULE PO SCH (20:57)
[2019-08-26] VITALS (7 sets, daily range): BP systolic 93–132; BP diastolic 44–95
[2019-08-26] MEDS: MethylPREDNISolone SOD SUCC 125 MG/2 ML VIAL IVP SCH ×4 (00:02→20:19)
[2019-08-26] MEDS: CefTRIAXone 1 GM/DEXTROSE 50 ML IV SCH ×2 (00:02→22:08)
[2019-08-26] MEDS: ALBUTEROL SULFATE 2.5 MG/0.5 ML NEB SOLUTION NEB SCH ×6 (03:20→22:31)
[2019-08-26] MEDS: IPRATROPIUM BROMIDE 0.5 MG/2.5 ML NEB SOLUTION NEB SCH ×6 (03:20→22:31)
[2019-08-26 05:08] LABS: BASOPHILS % (AUTO) 0.1 % (0.0-2.0); EOSINOPHILS % (AUTO) 0 % (1.0-6.0); HEMATOCRIT 33.7 % (41-53); MEAN CORPUSCULAR HEMOGLOBIN 28.7 pg (26.0-34.0); MEAN CORPUSCULAR HGB CONC 32.6 G/dL (31.0-37.0); MEAN CORPUSCULAR VOLUME 88 fL (80-100); MONOCYTES # (AUTO) 0.4 K/uL (0.1-1.0); MONOCYTES % (AUTO) 2.2 % (2.0-9.0); NEUTROPHILS # (AUTO) 18.6 K/uL (1.8-7.7); PLATELET COUNT (AUTO) 423 K/uL (150-450); RED BLOOD CELL COUNT(AUTO) 3.84 MIL/uL (4.50-5.90); RED CELL DISTRIBUTION WIDTH 14.6 % (11.5-14.5)
[2019-08-26 05:25] LABS: NEUTROPHILS % (AUTO) 92.7 % (40.0-70.0)
[2019-08-26 05:34] LABS: BILIRUBIN,TOTAL 0.4 mg/dL (0.1-1.0); CALCIUM, TOTAL 8.7 mg/dL (8.8-10.5); CREATININE 2.07 mg/dL (0.60-1.30); POTASSIUM 4.6 mmol/L (3.5-5.1); TOTAL PROTEIN, SERUM 6.7 g/dL (6.4-8.2)
[2019-08-26 05:45] LABS: INR 1.1 (0.9-1.1)
[2019-08-26] MEDS: DOCUSATE SODIUM 100 MG CAPSULE PO SCH ×2 (08:23→20:19)
[2019-08-26] MEDS: DIGOXIN 125 MCG TABLET PO SCH (08:23)
[2019-08-26] MEDS: FUROSEMIDE 20 MG TABLET PO SCH (08:23)
[2019-08-26] MEDS ORDERED: AMIODARONE HCL 360 MG in DEXTROSE 5%-WATER 242.8 ML IV ONE (09:15)
[2019-08-26] MEDS ORDERED: AMIODARONE HCL 150 MG in DEXTROSE 5%-WATER 97 ML IV ONE (09:15)
[2019-08-26] MEDS ORDERED: DIGOXIN 250 MCG/ML 2 ML AMP IVP ONE ×2 (09:15→13:45)
[2019-08-26] MEDS ORDERED: SODIUM CHLORIDE 0.9% 1,000 ML IV ONE (09:54)
[2019-08-26] MEDS: DOXYCYCLINE HYCLATE 100 MG in DEXTROSE 5%-WATER 100 ML IV SCH ×2 (10:03→21:03)
[2019-08-26] MEDS: LORazepam 2 MG/ML VIAL IVP PRN ×3 (12:50→21:04)
[2019-08-26 13:06] LABS: HIV 1-2 SCREEN 4TH GEN W/RFLX Non Reactive (Non Reactive)
[2019-08-26] MEDS ORDERED: AMIODARONE HCL 540 MG in DEXTROSE 5%-WATER 239.2 ML IV ONE (15:15)
[2019-08-26] MEDS: BUDESONIDE 0.5 MG/2 ML NEB SOLUTION NEB SCH (19:11)
[2019-08-26] MEDS: APIXABAN 5 MG TABLET PO SCH ×2 (22:05→22:08)
[2019-08-27] VITALS: BP 114/68
[2019-08-27] MEDS: MethylPREDNISolone SOD SUCC 125 MG/2 ML VIAL IVP SCH ×4 (00:01→18:16)
[2019-08-27 00:11] LABS: ABG A-A DIFF O2 59.9 mmHg (10-20.0); ABG BASE EXCESS -3.6 mmol/L (-2.0-3.0); ABG CARBOXYHEMOGLOBIN 0.7 % (0.0-1.5); ABG HCO3 21.7 mmol/L (22.0-26.0); ABG METHEMOGLOBIN 0.3 % (0.0-1.5); ABG OXYGEN CONTENT 12.8 mL/dL (15.0-23.0); ABG OXYHEMOGLOBIN 82.9 % (94.0-100.0); ABG PCO2 36 mmHg (35-45); ABG PH 7.393 (7.35-7.450); SOURCE, BLOOD GAS ARTERIAL; TEMPERATURE, FAHRENHEIT, BG 98.6 FAHREN (96.0-98.6)
[2019-08-27 00:12] LABS: ABG OXYGEN SATURATION 83.7 % (95.0-98.0); O2 DEVICE,BLOOD GAS ROOM AIR (ROOM AIR); SITE, BLOOD GAS LFT RADIAL
[2019-08-27] MEDS: IPRATROPIUM BROMIDE 0.5 MG/2.5 ML NEB SOLUTION NEB SCH ×6 (03:10→23:00)
[2019-08-27] MEDS: ALBUTEROL SULFATE 2.5 MG/0.5 ML NEB SOLUTION NEB SCH ×6 (03:10→23:00)
[2019-08-27 04:00] VITALS: BP 113/56
[2019-08-27 07:03] LABS: BASOPHILS % (AUTO) 0.1 % (0.0-2.0); EOSINOPHILS % (AUTO) 0 % (1.0-6.0); HEMATOCRIT 29.3 % (41-53); HEMOGLOBIN 9.9 g/dL (13.5-17.5); LYMPHOCYTES # (AUTO) 0.5 K/uL (1.0-4.8); LYMPHOCYTES % (AUTO) 2.4 % (22.0-44.0); MEAN CORPUSCULAR HEMOGLOBIN 29.5 pg (26.0-34.0); MEAN CORPUSCULAR HGB CONC 33.8 G/dL (31.0-37.0); MEAN CORPUSCULAR VOLUME 87 fL (80-100); MONOCYTES # (AUTO) 0.6 K/uL (0.1-1.0); MONOCYTES % (AUTO) 2.8 % (2.0-9.0); NEUTROPHILS # (AUTO) 20.2 K/uL (1.8-7.7); NEUTROPHILS % (AUTO) 94.7 % (40.0-70.0); PLATELET COUNT (AUTO) 401 K/uL (150-450); RED BLOOD CELL COUNT(AUTO) 3.36 MIL/uL (4.50-5.90); RED CELL DISTRIBUTION WIDTH 14.8 % (11.5-14.5)
[2019-08-27 07:29] LABS: CALCIUM, TOTAL 9.1 mg/dL (8.8-10.5); CREATININE 2.21 mg/dL (0.60-1.30); POTASSIUM 4.3 mmol/L (3.5-5.1)
[2019-08-27 08:00] VITALS: BP 98/50
[2019-08-27] MEDS: BUDESONIDE 0.5 MG/2 ML NEB SOLUTION NEB SCH ×2 (08:05→21:17)
[2019-08-27] MEDS: DOCUSATE SODIUM 100 MG CAPSULE PO SCH ×2 (09:18→21:01)
[2019-08-27] MEDS: APIXABAN 5 MG TABLET PO SCH ×2 (09:18→22:26)
[2019-08-27] MEDS: FUROSEMIDE 20 MG TABLET PO SCH (09:18)
[2019-08-27] MEDS: DIGOXIN 125 MCG TABLET PO SCH (09:18)
[2019-08-27] MEDS: AMIODARONE HCL 750 MG in DEXTROSE 5%-WATER 485 ML IV SCH (09:20)
[2019-08-27] MEDS: DOXYCYCLINE HYCLATE 100 MG in DEXTROSE 5%-WATER 100 ML IV SCH ×2 (11:18→23:25)
[2019-08-27 12:00] VITALS: BP 107/40
[2019-08-27] MEDS: LORazepam 2 MG/ML VIAL IVP PRN ×2 (15:17→21:01)
[2019-08-27 18:12] VITALS: BP 141/82
[2019-08-27 20:24] LABS: QUANTIFERON+, Nil Value 0.02 IU/mL; QUANTIFERON+,Mitogen Value 0.06 IU/mL; QUANTIFERON+,TB1 Antigen Value 0.03 IU/mL; QUANTIFERON, TB GOLD PLUS Indeterminate (Negative)
[2019-08-27 20:48] VITALS: BP 128/75
[2019-08-28] VITALS (8 sets, daily range): BP systolic 120–148; BP diastolic 64–94
[2019-08-28] MEDS: MethylPREDNISolone SOD SUCC 125 MG/2 ML VIAL IVP SCH ×2 (00:22→05:49)
[2019-08-28] MEDS: CefTRIAXone 1 GM/DEXTROSE 50 ML IV SCH ×2 (00:30→23:29)
[2019-08-28] MEDS: LORazepam 2 MG/ML VIAL IVP PRN ×5 (01:11→21:18)
[2019-08-28] MEDS: ALBUTEROL SULFATE 2.5 MG/0.5 ML NEB SOLUTION NEB SCH ×6 (03:00→23:49)
[2019-08-28] MEDS: IPRATROPIUM BROMIDE 0.5 MG/2.5 ML NEB SOLUTION NEB SCH ×6 (03:00→23:49)
[2019-08-28 06:39] LABS: BASOPHILS % (AUTO) 0.1 % (0.0-2.0); EOSINOPHILS % (AUTO) 0 % (1.0-6.0); HEMATOCRIT 32.7 % (41-53); HEMOGLOBIN 10.7 g/dL (13.5-17.5); LYMPHOCYTES # (AUTO) 0.7 K/uL (1.0-4.8); LYMPHOCYTES % (AUTO) 3.1 % (22.0-44.0); MEAN CORPUSCULAR HEMOGLOBIN 28.8 pg (26.0-34.0); MEAN CORPUSCULAR HGB CONC 32.8 G/dL (31.0-37.0); MEAN CORPUSCULAR VOLUME 88 fL (80-100); MONOCYTES # (AUTO) 0.5 K/uL (0.1-1.0); MONOCYTES % (AUTO) 2.4 % (2.0-9.0); NEUTROPHILS # (AUTO) 20.3 K/uL (1.8-7.7); PLATELET COUNT (AUTO) 503 K/uL (150-450); RED BLOOD CELL COUNT(AUTO) 3.72 MIL/uL (4.50-5.90)
[2019-08-28 06:43] LABS: NEUTROPHILS % (AUTO) 94.4 % (40.0-70.0)
[2019-08-28 06:55] LABS: ALBUMIN 3.1 g/dL (3.4-5.0); BILIRUBIN,TOTAL 0.5 mg/dL (0.1-1.0); CALCIUM, TOTAL 8.9 mg/dL (8.8-10.5); CREATININE 2.27 mg/dL (0.60-1.30); POTASSIUM 4.1 mmol/L (3.5-5.1); TOTAL PROTEIN, SERUM 6.5 g/dL (6.4-8.2)
[2019-08-28] MEDS: BUDESONIDE 0.5 MG/2 ML NEB SOLUTION NEB SCH ×2 (07:01→19:46)
[2019-08-28] MEDS: DIGOXIN 125 MCG TABLET PO SCH (08:45)
[2019-08-28] MEDS: DOCUSATE SODIUM 100 MG CAPSULE PO SCH ×2 (08:45→21:19)
[2019-08-28] MEDS: FUROSEMIDE 20 MG TABLET PO SCH (08:45)
[2019-08-28] MEDS: APIXABAN 5 MG TABLET PO SCH ×2 (08:45→21:18)
[2019-08-28] MEDS: AMIODARONE HCL 750 MG in DEXTROSE 5%-WATER 485 ML IV SCH (09:21)
[2019-08-28] MEDS: DOXYCYCLINE HYCLATE 100 MG in DEXTROSE 5%-WATER 100 ML IV SCH ×2 (09:21→22:11)
[2019-08-28 11:38] LABS: CREATININE,URINE RANDOM 52.8 mg/dL (30.0-125.0); PROTEIN,URINE RANDOM 13 mg/dL (0-11.9); SODIUM,URINE RANDOM 23 mmol/l (20-110); UREA NITROGEN,URINE RANDOM 903 mg/dL (350-1000)
[2019-08-28 11:42] LABS: APPEARANCE,URINE CLEAR (CLEAR); BILIRUBIN,URINE NEGATIVE (NEGATIVE); GLUCOSE, URINE (UA) NEGATIVE (NEGATIVE); KETONES,URINE NEGATIVE (NEGATIVE); LEUKOCYTE ESTERASE ,URINE NEGATIVE (NEGATIVE); NITRATE,URINE NEGATIVE (NEGATIVE); OCCULT BLOOD,URINE NEGATIVE (NEGATIVE); PROTEIN,URINE NEGATIVE (NEGATIVE); UROBILINOGEN,URINE 0.2 mg/dL (<=1.0)
[2019-08-28] MEDS: MethylPREDNISolone SOD SUCC 40 MG/ML VIAL IVP SCH ×3 (12:28→23:30)
[2019-08-28] MEDS: DILTIAZEM HCL CD 120 MG ER CAPSULE PO SCH (21:18)
[2019-08-29] MEDS: LORazepam 2 MG/ML VIAL IVP PRN ×3 (01:45→17:27)
[2019-08-29 03:19] VITALS: BP 141/74
[2019-08-29] MEDS: IPRATROPIUM BROMIDE 0.5 MG/2.5 ML NEB SOLUTION NEB SCH ×6 (03:35→23:45)
[2019-08-29] MEDS: ALBUTEROL SULFATE 2.5 MG/0.5 ML NEB SOLUTION NEB SCH ×6 (03:35→23:45)
[2019-08-29] MEDS: MethylPREDNISolone SOD SUCC 40 MG/ML VIAL IVP SCH ×4 (05:30→23:21)
[2019-08-29 06:07] LABS: GLUCOMETER DEV NAME(LOC) 5S.2A; GLUCOSE,POINT OF CARE 168 MG/DL (70-110)
[2019-08-29 08:01] VITALS: BP 142/93
[2019-08-29] MEDS: BUDESONIDE 0.5 MG/2 ML NEB SOLUTION NEB SCH ×2 (08:03→19:54)
[2019-08-29] MEDS: DOCUSATE SODIUM 100 MG CAPSULE PO SCH ×2 (08:33→21:13)
[2019-08-29] MEDS: APIXABAN 5 MG TABLET PO SCH ×2 (08:33→21:14)
[2019-08-29] MEDS: DILTIAZEM HCL CD 120 MG ER CAPSULE PO SCH ×2 (08:33→21:13)
[2019-08-29] MEDS: FUROSEMIDE 20 MG TABLET PO SCH (08:33)
[2019-08-29] MEDS: DIGOXIN 125 MCG TABLET PO SCH (08:33)
[2019-08-29] MEDS: AMIODARONE HCL 750 MG in DEXTROSE 5%-WATER 485 ML IV SCH (10:12)
[2019-08-29] MEDS: DOXYCYCLINE HYCLATE 100 MG in DEXTROSE 5%-WATER 100 ML IV SCH ×2 (10:35→21:15)
[2019-08-29 11:34] VITALS: BP 144/77
[2019-08-29] MEDS ORDERED: SODIUM CHLORIDE 3% 15 ML NEB SOLUTION NEB ONE (15:26)
[2019-08-29 20:00] VITALS: BP 149/60
[2019-08-29] MEDS: CefTRIAXone 1 GM/DEXTROSE 50 ML IV SCH (23:21)
[2019-08-30 00:15] VITALS: BP 118/59
[2019-08-30] MEDS: ALBUTEROL SULFATE 2.5 MG/0.5 ML NEB SOLUTION NEB SCH ×6 (03:37→23:26)
[2019-08-30] MEDS: IPRATROPIUM BROMIDE 0.5 MG/2.5 ML NEB SOLUTION NEB SCH ×6 (03:37→23:26)
[2019-08-30 04:30] VITALS: BP 107/56
[2019-08-30] MEDS: LORazepam 2 MG/ML VIAL IVP PRN ×3 (05:48→20:50)
[2019-08-30] MEDS: MethylPREDNISolone SOD SUCC 40 MG/ML VIAL IVP SCH (05:48)
[2019-08-30 06:28] LABS: BASOPHILS % (AUTO) 0.1 % (0.0-2.0); EOSINOPHILS % (AUTO) 0.1 % (1.0-6.0); HEMATOCRIT 32.5 % (41-53); HEMOGLOBIN 10.9 g/dL (13.5-17.5); LYMPHOCYTES # (AUTO) 0.9 K/uL (1.0-4.8); LYMPHOCYTES % (AUTO) 3.9 % (22.0-44.0); MEAN CORPUSCULAR HEMOGLOBIN 29.3 pg (26.0-34.0); MEAN CORPUSCULAR HGB CONC 33.5 G/dL (31.0-37.0); MEAN CORPUSCULAR VOLUME 88 fL (80-100); MONOCYTES # (AUTO) 0.9 K/uL (0.1-1.0); MONOCYTES % (AUTO) 3.8 % (2.0-9.0); NEUTROPHILS # (AUTO) 20.5 K/uL (1.8-7.7); PLATELET COUNT (AUTO) 473 K/uL (150-450); RED BLOOD CELL COUNT(AUTO) 3.72 MIL/uL (4.50-5.90); RED CELL DISTRIBUTION WIDTH 14.7 % (11.5-14.5)
[2019-08-30 06:48] LABS: CALCIUM, TOTAL 8.8 mg/dL (8.8-10.5); CREATININE 2.4 mg/dL (0.60-1.30); MAGNESIUM 2.2 mg/dL (1.80-2.40); POTASSIUM 4.1 mmol/L (3.5-5.1)
[2019-08-30 07:06] LABS: NEUTROPHILS % (AUTO) 92.1 % (40.0-70.0)
[2019-08-30 07:40] VITALS: BP 124/90
[2019-08-30] MEDS: BUDESONIDE 0.5 MG/2 ML NEB SOLUTION NEB SCH ×2 (07:58→20:03)
[2019-08-30] MEDS: DIGOXIN 125 MCG TABLET PO SCH (08:47)
[2019-08-30] MEDS: DILTIAZEM HCL CD 120 MG ER CAPSULE PO SCH ×2 (08:47→20:50)
[2019-08-30] MEDS: DOCUSATE SODIUM 100 MG CAPSULE PO SCH ×2 (08:47→20:50)
[2019-08-30] MEDS: APIXABAN 5 MG TABLET PO SCH ×2 (08:47→20:50)
[2019-08-30] MEDS: FUROSEMIDE 20 MG TABLET PO SCH (08:47)
[2019-08-30] MEDS: DOXYCYCLINE HYCLATE 100 MG in DEXTROSE 5%-WATER 100 ML IV SCH ×2 (11:10→20:51)
[2019-08-30 12:12] VITALS: BP 118/55
[2019-08-30] MEDS: PredniSONE 20 MG TABLET PO SCH (15:23)
[2019-08-30] MEDS: AMIODARONE HCL 750 MG in DEXTROSE 5%-WATER 485 ML IV SCH (15:25)
[2019-08-30] MEDS ORDERED: SODIUM CHLORIDE 0.9% 500 ML IV SCH (15:30)
[2019-08-30 16:14] VITALS: BP 128/78
[2019-08-30 20:12] VITALS: BP 120/77
[2019-08-30] MEDS: CefTRIAXone 1 GM/DEXTROSE 50 ML IV SCH (23:55)
[2019-08-31 00:07] VITALS: BP 108/50
[2019-08-31] MEDS: LORazepam 2 MG/ML VIAL IVP PRN ×2 (02:15→21:04)
[2019-08-31] MEDS: IPRATROPIUM BROMIDE 0.5 MG/2.5 ML NEB SOLUTION NEB SCH ×5 (03:01→20:27)
[2019-08-31] MEDS: ALBUTEROL SULFATE 2.5 MG/0.5 ML NEB SOLUTION NEB SCH ×5 (03:01→20:27)
[2019-08-31 04:02] VITALS: BP 119/60
[2019-08-31 06:35] LABS: EOSINOPHILS % (AUTO) 0 % (1.0-6.0); HEMATOCRIT 31.5 % (41-53); HEMOGLOBIN 10.4 g/dL (13.5-17.5); LYMPHOCYTES # (AUTO) 0.6 K/uL (1.0-4.8); LYMPHOCYTES % (AUTO) 3.1 % (22.0-44.0); MEAN CORPUSCULAR HEMOGLOBIN 28.9 pg (26.0-34.0); MEAN CORPUSCULAR HGB CONC 33.1 G/dL (31.0-37.0); MEAN CORPUSCULAR VOLUME 88 fL (80-100); MONOCYTES # (AUTO) 1.6 K/uL (0.1-1.0); MONOCYTES % (AUTO) 7.4 % (2.0-9.0); PLATELET COUNT (AUTO) 461 K/uL (150-450); RED CELL DISTRIBUTION WIDTH 14.9 % (11.5-14.5)
[2019-08-31 06:50] LABS: NEUTROPHILS % (AUTO) 89.5 % (40.0-70.0)
[2019-08-31 06:53] LABS: CALCIUM, TOTAL 8.3 mg/dL (8.8-10.5); CREATININE 2.21 mg/dL (0.60-1.30); MAGNESIUM 2.2 mg/dL (1.80-2.40); PHOSPHORUS 4.2 mg/dL (2.5-4.9); POTASSIUM 4.2 mmol/L (3.5-5.1)
[2019-08-31] MEDS ORDERED: TUBERCULIN, PURIFIED PROTEIN DERIVATIVE 5 TU/0.1 ML SYRINGE ID ONE (08:30)
[2019-08-31] MEDS: BUDESONIDE 0.5 MG/2 ML NEB SOLUTION NEB SCH ×2 (08:46→21:00)
[2019-08-31 09:36] VITALS: BP 122/69
[2019-08-31] MEDS: DILTIAZEM HCL CD 120 MG ER CAPSULE PO SCH ×2 (09:53→21:02)
[2019-08-31] MEDS: QUEtiapine FUMARATE 25 MG TABLET PO SCH ×2 (09:53→21:02)
[2019-08-31] MEDS: DIGOXIN 125 MCG TABLET PO SCH (09:53)
[2019-08-31] MEDS: APIXABAN 5 MG TABLET PO SCH ×2 (09:53→21:02)
[2019-08-31] MEDS: PredniSONE 20 MG TABLET PO SCH (09:53)
[2019-08-31] MEDS: FUROSEMIDE 20 MG TABLET PO SCH (09:53)
[2019-08-31] MEDS: DOCUSATE SODIUM 100 MG CAPSULE PO SCH ×2 (09:53→21:02)
[2019-08-31] MEDS: DOXYCYCLINE HYCLATE 100 MG in DEXTROSE 5%-WATER 100 ML IV SCH ×2 (11:56→21:13)
[2019-08-31 12:02] VITALS: BP 121/67
[2019-08-31 20:21] VITALS: BP 118/68
[2019-08-31] MEDS: CefTRIAXone 1 GM/DEXTROSE 50 ML IV SCH (22:23)
[2019-08-31 23:10] VITALS: BP 129/69
[2019-08-31] MEDS: ZOLPIDEM TARTRATE 5 MG TABLET PO PRN (23:26)
[2019-09-01] MEDS: IPRATROPIUM BROMIDE 0.5 MG/2.5 ML NEB SOLUTION NEB SCH ×7 (00:01→22:13)
[2019-09-01] MEDS: ALBUTEROL SULFATE 2.5 MG/0.5 ML NEB SOLUTION NEB SCH ×7 (00:01→22:13)
[2019-09-01 03:50] VITALS: BP 121/70
[2019-09-01] MEDS: QUEtiapine FUMARATE 25 MG TABLET PO SCH ×2 (07:36→19:49)
[2019-09-01] MEDS: APIXABAN 5 MG TABLET PO SCH ×2 (07:36→19:49)
[2019-09-01] MEDS: DOCUSATE SODIUM 100 MG CAPSULE PO SCH ×2 (07:36→19:49)
[2019-09-01] MEDS: LORazepam 2 MG/ML VIAL IVP PRN ×3 (07:36→23:57)
[2019-09-01] MEDS: DIGOXIN 125 MCG TABLET PO SCH (07:36)
[2019-09-01] MEDS: FUROSEMIDE 20 MG TABLET PO SCH (07:36)
[2019-09-01] MEDS: PredniSONE 20 MG TABLET PO SCH (07:36)
[2019-09-01] MEDS: DILTIAZEM HCL CD 120 MG ER CAPSULE PO SCH ×2 (07:36→19:48)
[2019-09-01 07:47] VITALS: BP 146/77
[2019-09-01] MEDS: BUDESONIDE 0.5 MG/2 ML NEB SOLUTION NEB SCH ×2 (08:24→19:12)
[2019-09-01] MEDS: DOXYCYCLINE HYCLATE 100 MG in DEXTROSE 5%-WATER 100 ML IV SCH ×2 (11:46→21:26)
[2019-09-01 12:09] VITALS: BP 128/74
[2019-09-01 17:41] VITALS: BP 115/88
[2019-09-01 19:53] VITALS: BP 140/75
[2019-09-01] MEDS ORDERED: SODIUM CHLORIDE 3% 15 ML NEB SOLUTION NEB ONE (22:02)
[2019-09-01] MEDS: CefTRIAXone 1 GM/DEXTROSE 50 ML IV SCH (22:23)
[2019-09-01] MEDS: ZOLPIDEM TARTRATE 5 MG TABLET PO PRN (22:31)
[2019-09-02] VITALS (7 sets, daily range): BP systolic 114–138; BP diastolic 64–86
[2019-09-02] MEDS: ALBUTEROL SULFATE 2.5 MG/0.5 ML NEB SOLUTION NEB SCH ×6 (02:26→23:13)
[2019-09-02] MEDS: IPRATROPIUM BROMIDE 0.5 MG/2.5 ML NEB SOLUTION NEB SCH ×6 (02:26→23:13)
[2019-09-02 06:19] LABS: BASOPHILS % (AUTO) 0.2 % (0.0-2.0); EOSINOPHILS % (AUTO) 1.1 % (1.0-6.0); HEMATOCRIT 32.3 % (41-53); HEMOGLOBIN 10.7 g/dL (13.5-17.5); LYMPHOCYTES # (AUTO) 1.2 K/uL (1.0-4.8); LYMPHOCYTES % (AUTO) 6.5 % (22.0-44.0); MEAN CORPUSCULAR HEMOGLOBIN 29.6 pg (26.0-34.0); MEAN CORPUSCULAR HGB CONC 33.1 G/dL (31.0-37.0); MEAN CORPUSCULAR VOLUME 89 fL (80-100); MONOCYTES # (AUTO) 1.2 K/uL (0.1-1.0); MONOCYTES % (AUTO) 6.5 % (2.0-9.0); NEUTROPHILS # (AUTO) 16.2 K/uL (1.8-7.7); PLATELET COUNT (AUTO) 376 K/uL (150-450); RED BLOOD CELL COUNT(AUTO) 3.61 MIL/uL (4.50-5.90); RED CELL DISTRIBUTION WIDTH 15.2 % (11.5-14.5)
[2019-09-02 06:24] LABS: NEUTROPHILS % (AUTO) 85.7 % (40.0-70.0)
[2019-09-02 06:31] LABS: CALCIUM, TOTAL 8.2 mg/dL (8.8-10.5); CREATININE 2.09 mg/dL (0.60-1.30); MAGNESIUM 2.2 mg/dL (1.80-2.40); PHOSPHORUS 3.3 mg/dL (2.5-4.9); POTASSIUM 3.6 mmol/L (3.5-5.1)
[2019-09-02] MEDS: LORazepam 2 MG/ML VIAL IVP PRN ×2 (07:52→22:03)
[2019-09-02] MEDS: DILTIAZEM HCL CD 120 MG ER CAPSULE PO SCH ×2 (07:53→21:28)
[2019-09-02] MEDS: FUROSEMIDE 20 MG TABLET PO SCH (07:53)
[2019-09-02] MEDS: QUEtiapine FUMARATE 25 MG TABLET PO SCH ×2 (07:53→21:00)
[2019-09-02] MEDS: DOCUSATE SODIUM 100 MG CAPSULE PO SCH ×2 (07:53→21:27)
[2019-09-02] MEDS: DIGOXIN 125 MCG TABLET PO SCH (07:53)
[2019-09-02] MEDS: PredniSONE 20 MG TABLET PO SCH (07:54)
[2019-09-02] MEDS: APIXABAN 5 MG TABLET PO SCH ×2 (07:54→21:28)
[2019-09-02] MEDS: BUDESONIDE 0.5 MG/2 ML NEB SOLUTION NEB SCH ×2 (08:08→19:49)
[2019-09-02] MEDS ORDERED: SODIUM CHLORIDE 0.9% 250 ML IV ONE (09:41)
[2019-09-02] MEDS: DOXYCYCLINE HYCLATE 100 MG in DEXTROSE 5%-WATER 100 ML IV SCH ×2 (09:54→21:53)
[2019-09-02] MEDS: CefTRIAXone 1 GM/DEXTROSE 50 ML IV SCH (23:18)
[2019-09-03] MEDS: LORazepam 2 MG/ML VIAL IVP PRN ×2 (02:07→19:58)
[2019-09-03] MEDS: IPRATROPIUM BROMIDE 0.5 MG/2.5 ML NEB SOLUTION NEB SCH ×6 (03:21→23:00)
[2019-09-03] MEDS: ALBUTEROL SULFATE 2.5 MG/0.5 ML NEB SOLUTION NEB SCH ×6 (03:21→23:00)
[2019-09-03 04:56] VITALS: BP 125/72
[2019-09-03 08:02] VITALS: BP 146/72
[2019-09-03] MEDS: BUDESONIDE 0.5 MG/2 ML NEB SOLUTION NEB SCH ×2 (08:30→19:49)
[2019-09-03] MEDS: PredniSONE 20 MG TABLET PO SCH (08:35)
[2019-09-03] MEDS: QUEtiapine FUMARATE 25 MG TABLET PO SCH ×2 (08:35→21:19)
[2019-09-03] MEDS: DOCUSATE SODIUM 100 MG CAPSULE PO SCH ×2 (08:35→21:19)
[2019-09-03] MEDS: APIXABAN 5 MG TABLET PO SCH ×2 (08:35→21:19)
[2019-09-03] MEDS: DILTIAZEM HCL CD 120 MG ER CAPSULE PO SCH ×2 (08:36→21:19)
[2019-09-03] MEDS: DIGOXIN 125 MCG TABLET PO SCH (08:36)
[2019-09-03] MEDS: DOXYCYCLINE HYCLATE 100 MG in DEXTROSE 5%-WATER 100 ML IV SCH ×2 (08:58→21:26)
[2019-09-03 11:45] VITALS: BP 109/94
[2019-09-03] MEDS ORDERED: SODIUM CHLORIDE 3% 15 ML NEB SOLUTION NEB ONE (12:04)
[2019-09-03 13:45] VITALS: BP 112/76
[2019-09-03 20:04] VITALS: BP 136/64
[2019-09-03] MEDS: ONDANSETRON HCL 4 MG/2 ML VIAL IVP PRN (21:26)
[2019-09-03] MEDS: CefTRIAXone 1 GM/DEXTROSE 50 ML IV SCH (22:36)
[2019-09-04] MEDS ORDERED: ONDANSETRON HCL 4 MG/2 ML VIAL IVP ONE (00:30)
[2019-09-04 01:23] VITALS: BP 120/69
[2019-09-04] MEDS: IPRATROPIUM BROMIDE 0.5 MG/2.5 ML NEB SOLUTION NEB SCH ×6 (02:41→23:00)
[2019-09-04] MEDS: ALBUTEROL SULFATE 2.5 MG/0.5 ML NEB SOLUTION NEB SCH ×6 (02:42→23:00)
[2019-09-04] MEDS ORDERED: LACTULOSE 20 GM/30 ML SOLUTION UDCUP PO PRN (03:15)
[2019-09-04] MEDS: LACTULOSE 200 GM/300 ML RECTAL SOLUTION PR ONE ×2 (04:05→04:31)
[2019-09-04] MEDS: ONDANSETRON HCL 4 MG/2 ML VIAL IVP PRN (05:12)
[2019-09-04 06:00] VITALS: BP 141/76
[2019-09-04] MEDS ORDERED: SODIUM CHLORIDE 0.9% 1,000 ML IV ONE (06:42)
[2019-09-04 07:08] LABS: CALCIUM, TOTAL 9.5 mg/dL (8.8-10.5); CREATININE 2.19 mg/dL (0.60-1.30); POTASSIUM 4.6 mmol/L (3.5-5.1)
[2019-09-04] MEDS: BUDESONIDE 0.5 MG/2 ML NEB SOLUTION NEB SCH ×2 (07:59→19:39)
[2019-09-04 08:30] VITALS: BP 128/70
[2019-09-04 08:32] LABS: BASOPHILS % (AUTO) 0.6 % (0.0-2.0); EOSINOPHILS % (AUTO) 0.3 % (1.0-6.0); HEMATOCRIT 34.2 % (41-53); HEMOGLOBIN 11.4 g/dL (13.5-17.5); LYMPHOCYTES # (AUTO) 0.8 K/uL (1.0-4.8); LYMPHOCYTES % (AUTO) 3.3 % (22.0-44.0); MEAN CORPUSCULAR HEMOGLOBIN 29.9 pg (26.0-34.0); MEAN CORPUSCULAR HGB CONC 33.4 G/dL (31.0-37.0); MEAN CORPUSCULAR VOLUME 89 fL (80-100); MONOCYTES % (AUTO) 4.1 % (2.0-9.0); NEUTROPHILS # (AUTO) 22.6 K/uL (1.8-7.7); PLATELET COUNT (AUTO) 400 K/uL (150-450); RED BLOOD CELL COUNT(AUTO) 3.83 MIL/uL (4.50-5.90); RED CELL DISTRIBUTION WIDTH 15.4 % (11.5-14.5)
[2019-09-04 08:35] LABS: NEUTROPHILS % (AUTO) 91.7 % (40.0-70.0)
[2019-09-04] MEDS: PredniSONE 20 MG TABLET PO SCH (09:00)
[2019-09-04] MEDS: DOCUSATE SODIUM 100 MG CAPSULE PO SCH ×2 (09:00→21:00)
[2019-09-04] MEDS: DIGOXIN 125 MCG TABLET PO SCH (09:00)
[2019-09-04] MEDS: QUEtiapine FUMARATE 25 MG TABLET PO SCH ×2 (09:00→21:00)
[2019-09-04] MEDS: APIXABAN 5 MG TABLET PO SCH ×2 (09:00→21:00)
[2019-09-04] MEDS: DILTIAZEM HCL CD 120 MG ER CAPSULE PO SCH ×2 (09:00→21:00)
[2019-09-04] MEDS: DOXYCYCLINE HYCLATE 100 MG in DEXTROSE 5%-WATER 100 ML IV SCH ×2 (12:23→21:47)
[2019-09-04] MEDS: PANTOPRAZOLE SODIUM 40 MG/VIAL IVP SCH ×2 (12:23→20:32)
[2019-09-04] MEDS ORDERED: LORazepam 2 MG/ML VIAL IVP PRN (14:00)
[2019-09-04 16:07] VITALS: BP 99/68
[2019-09-04 20:09] VITALS: BP 117/65
[2019-09-04] MEDS: LORazepam 2 MG/ML VIAL IVP PRN (20:31)
[2019-09-04] MEDS: CefTRIAXone 1 GM/DEXTROSE 50 ML IV SCH (23:25)
[2019-09-05 00:02] VITALS: BP 107/63
[2019-09-05] MEDS: IPRATROPIUM BROMIDE 0.5 MG/2.5 ML NEB SOLUTION NEB SCH ×6 (03:00→23:19)
[2019-09-05] MEDS: ALBUTEROL SULFATE 2.5 MG/0.5 ML NEB SOLUTION NEB SCH ×6 (03:00→23:19)
[2019-09-05 05:25] VITALS: BP 100/71
[2019-09-05] MEDS: BUDESONIDE 0.5 MG/2 ML NEB SOLUTION NEB SCH ×2 (07:50→20:01)
[2019-09-05 08:14] VITALS: BP 92/49
[2019-09-05] MEDS: APIXABAN 5 MG TABLET PO SCH ×2 (08:55→21:23)
[2019-09-05] MEDS: QUEtiapine FUMARATE 25 MG TABLET PO SCH ×2 (08:55→21:00)
[2019-09-05] MEDS: PANTOPRAZOLE SODIUM 40 MG/VIAL IVP SCH ×2 (08:55→21:23)
[2019-09-05] MEDS: PredniSONE 20 MG TABLET PO SCH (08:56)
[2019-09-05] MEDS: DIGOXIN 125 MCG TABLET PO SCH (08:57)
[2019-09-05] MEDS: DILTIAZEM HCL CD 120 MG ER CAPSULE PO SCH ×2 (08:57→21:00)
[2019-09-05] MEDS: DOCUSATE SODIUM 100 MG CAPSULE PO SCH ×2 (08:58→21:23)
[2019-09-05] MEDS: DOXYCYCLINE HYCLATE 100 MG in DEXTROSE 5%-WATER 100 ML IV SCH (09:27)
[2019-09-05 10:52] VITALS: BP 108/63
[2019-09-05 11:30] LABS: BASOPHILS % (AUTO) 0.2 % (0.0-2.0); EOSINOPHILS % (AUTO) 1.4 % (1.0-6.0); HEMATOCRIT 30.9 % (41-53); HEMOGLOBIN 10.2 g/dL (13.5-17.5); LYMPHOCYTES # (AUTO) 0.5 K/uL (1.0-4.8); LYMPHOCYTES % (AUTO) 2.4 % (22.0-44.0); MEAN CORPUSCULAR HEMOGLOBIN 29.8 pg (26.0-34.0); MEAN CORPUSCULAR VOLUME 90 fL (80-100); MONOCYTES # (AUTO) 1.1 K/uL (0.1-1.0); MONOCYTES % (AUTO) 5.4 % (2.0-9.0); NEUTROPHILS # (AUTO) 19.1 K/uL (1.8-7.7); PLATELET COUNT (AUTO) 348 K/uL (150-450); RED BLOOD CELL COUNT(AUTO) 3.42 MIL/uL (4.50-5.90); RED CELL DISTRIBUTION WIDTH 15.8 % (11.5-14.5)
[2019-09-05 11:31] LABS: NEUTROPHILS % (AUTO) 90.6 % (40.0-70.0)
[2019-09-05 16:15] VITALS: BP 134/56
[2019-09-05 19:49] VITALS: BP 135/63
[2019-09-06] VITALS (8 sets, daily range): BP systolic 99–125; BP diastolic 51–72
[2019-09-06] MEDS: IPRATROPIUM BROMIDE 0.5 MG/2.5 ML NEB SOLUTION NEB SCH ×6 (03:52→22:35)
[2019-09-06] MEDS: ALBUTEROL SULFATE 2.5 MG/0.5 ML NEB SOLUTION NEB SCH ×6 (03:52→22:34)
[2019-09-06 06:06] LABS: BASOPHILS % (AUTO) 0.2 % (0.0-2.0); EOSINOPHILS % (AUTO) 1.3 % (1.0-6.0); HEMATOCRIT 28.1 % (41-53); HEMOGLOBIN 9.3 g/dL (13.5-17.5); LYMPHOCYTES # (AUTO) 0.8 K/uL (1.0-4.8); LYMPHOCYTES % (AUTO) 3.9 % (22.0-44.0); MEAN CORPUSCULAR HEMOGLOBIN 29.9 pg (26.0-34.0); MEAN CORPUSCULAR HGB CONC 33.2 G/dL (31.0-37.0); MEAN CORPUSCULAR VOLUME 90 fL (80-100); MONOCYTES # (AUTO) 1.3 K/uL (0.1-1.0); MONOCYTES % (AUTO) 6.4 % (2.0-9.0); NEUTROPHILS # (AUTO) 17.6 K/uL (1.8-7.7); PLATELET COUNT (AUTO) 315 K/uL (150-450); RED BLOOD CELL COUNT(AUTO) 3.12 MIL/uL (4.50-5.90); RED CELL DISTRIBUTION WIDTH 16.2 % (11.5-14.5)
[2019-09-06 06:08] LABS: NEUTROPHILS % (AUTO) 88.2 % (40.0-70.0)
[2019-09-06] MEDS: BUDESONIDE 0.5 MG/2 ML NEB SOLUTION NEB SCH ×2 (08:00→19:07)
[2019-09-06] MEDS: QUEtiapine FUMARATE 25 MG TABLET PO SCH ×3 (09:00→20:39)
[2019-09-06 09:26] LABS: CALCIUM, TOTAL 8.1 mg/dL (8.8-10.5); CREATININE 2.19 mg/dL (0.60-1.30); POTASSIUM 3.6 mmol/L (3.5-5.1)
[2019-09-06 09:29] LABS: PHOSPHORUS 2.8 mg/dL (2.5-4.9)
[2019-09-06] MEDS: DILTIAZEM HCL CD 120 MG ER CAPSULE PO SCH ×2 (09:53→20:30)
[2019-09-06] MEDS: PredniSONE 20 MG TABLET PO SCH (09:54)
[2019-09-06] MEDS: DOCUSATE SODIUM 100 MG CAPSULE PO SCH ×2 (09:54→20:27)
[2019-09-06] MEDS: DIGOXIN 125 MCG TABLET PO SCH (09:54)
[2019-09-06] MEDS: APIXABAN 5 MG TABLET PO SCH ×2 (09:55→20:26)
[2019-09-06] MEDS: PANTOPRAZOLE SODIUM 40 MG/VIAL IVP SCH ×2 (09:55→20:25)
[2019-09-06] MEDS: LORazepam 2 MG/ML VIAL IVP PRN ×2 (13:16→20:26)
[2019-09-07] MEDS: LORazepam 2 MG/ML VIAL IVP PRN ×2 (00:26→18:23)
[2019-09-07] MEDS: ALBUTEROL SULFATE 2.5 MG/0.5 ML NEB SOLUTION NEB SCH ×6 (03:00→23:29)
[2019-09-07] MEDS: IPRATROPIUM BROMIDE 0.5 MG/2.5 ML NEB SOLUTION NEB SCH ×6 (03:00→23:30)
[2019-09-07 04:09] VITALS: BP 109/56
[2019-09-07 07:05] VITALS: BP 121/48
[2019-09-07] MEDS: BUDESONIDE 0.5 MG/2 ML NEB SOLUTION NEB SCH ×2 (07:55→19:40)
[2019-09-07] MEDS: DOCUSATE SODIUM 100 MG CAPSULE PO SCH ×2 (08:31→20:28)
[2019-09-07] MEDS: DIGOXIN 125 MCG TABLET PO SCH (08:31)
[2019-09-07] MEDS: APIXABAN 5 MG TABLET PO SCH ×2 (08:32→20:28)
[2019-09-07] MEDS: DILTIAZEM HCL CD 120 MG ER CAPSULE PO SCH ×2 (08:32→20:28)
[2019-09-07] MEDS: PredniSONE 20 MG TABLET PO SCH (08:32)
[2019-09-07] MEDS: PANTOPRAZOLE SODIUM 40 MG/VIAL IVP SCH ×2 (08:32→20:27)
[2019-09-07] MEDS: QUEtiapine FUMARATE 25 MG TABLET PO SCH ×2 (08:39→20:28)
[2019-09-07 10:57] VITALS: BP 118/61
[2019-09-07 15:39] VITALS: BP 117/75
[2019-09-07] MEDS: ONDANSETRON HCL 4 MG/2 ML VIAL IVP PRN (18:17)
[2019-09-07 20:01] VITALS: BP 114/59
[2019-09-08 00:10] VITALS: BP 107/54
[2019-09-08] MEDS: LORazepam 2 MG/ML VIAL IVP PRN ×4 (01:23→20:54)
[2019-09-08] MEDS: IPRATROPIUM BROMIDE 0.5 MG/2.5 ML NEB SOLUTION NEB SCH ×6 (03:28→22:55)
[2019-09-08] MEDS: ALBUTEROL SULFATE 2.5 MG/0.5 ML NEB SOLUTION NEB SCH ×6 (03:28→22:55)
[2019-09-08 04:23] VITALS: BP 131/59
[2019-09-08 06:58] LABS: BASOPHILS % (AUTO) 0.4 % (0.0-2.0); EOSINOPHILS % (AUTO) 1.8 % (1.0-6.0); HEMATOCRIT 27.1 % (41-53); LYMPHOCYTES # (AUTO) 0.9 K/uL (1.0-4.8); LYMPHOCYTES % (AUTO) 7.9 % (22.0-44.0); MEAN CORPUSCULAR HEMOGLOBIN 30.4 pg (26.0-34.0); MEAN CORPUSCULAR HGB CONC 33.4 G/dL (31.0-37.0); MEAN CORPUSCULAR VOLUME 91 fL (80-100); MONOCYTES # (AUTO) 1.2 K/uL (0.1-1.0); MONOCYTES % (AUTO) 10.1 % (2.0-9.0); NEUTROPHILS # (AUTO) 9.2 K/uL (1.8-7.7); NEUTROPHILS % (AUTO) 79.8 % (40.0-70.0); PLATELET COUNT (AUTO) 349 K/uL (150-450); RED BLOOD CELL COUNT(AUTO) 2.97 MIL/uL (4.50-5.90); RED CELL DISTRIBUTION WIDTH 16.7 % (11.5-14.5)
[2019-09-08 07:18] VITALS: BP 99/64
[2019-09-08] MEDS: PANTOPRAZOLE SODIUM 40 MG/VIAL IVP SCH ×2 (07:50→20:15)
[2019-09-08] MEDS: PredniSONE 20 MG TABLET PO SCH (07:50)
[2019-09-08] MEDS: APIXABAN 5 MG TABLET PO SCH ×2 (07:50→20:16)
[2019-09-08] MEDS: QUEtiapine FUMARATE 25 MG TABLET PO SCH ×2 (07:50→20:22)
[2019-09-08] MEDS: DOCUSATE SODIUM 100 MG CAPSULE PO SCH ×2 (07:50→20:16)
[2019-09-08] MEDS: DIGOXIN 125 MCG TABLET PO SCH (07:50)
[2019-09-08] MEDS: DILTIAZEM HCL CD 120 MG ER CAPSULE PO SCH ×2 (07:54→20:16)
[2019-09-08 08:08] LABS: ALBUMIN 2.1 g/dL (3.4-5.0); BILIRUBIN,TOTAL 0.5 mg/dL (0.1-1.0); CREATININE 1.72 mg/dL (0.60-1.30); DIGOXIN 0.9 ng/mL (0.90-2.00); MAGNESIUM 2.1 mg/dL (1.80-2.40); POTASSIUM 3.8 mmol/L (3.5-5.1); TOTAL PROTEIN, SERUM 4.8 g/dL (6.4-8.2)
[2019-09-08] MEDS: BUDESONIDE 0.5 MG/2 ML NEB SOLUTION NEB SCH ×2 (08:50→19:39)
[2019-09-08 12:06] VITALS: BP 122/68
[2019-09-08 15:58] VITALS: BP 121/68
[2019-09-08 19:58] VITALS: BP 107/62
[2019-09-09] MEDS: LORazepam 2 MG/ML VIAL IVP PRN ×2 (01:39→13:36)
[2019-09-09] MEDS: IPRATROPIUM BROMIDE 0.5 MG/2.5 ML NEB SOLUTION NEB SCH ×5 (03:00→19:00)
[2019-09-09] MEDS: ALBUTEROL SULFATE 2.5 MG/0.5 ML NEB SOLUTION NEB SCH ×5 (03:00→19:00)
[2019-09-09 06:09] VITALS: BP 110/59
[2019-09-09 06:11] LABS: BASOPHILS % (AUTO) 0.7 % (0.0-2.0); EOSINOPHILS % (AUTO) 2.3 % (1.0-6.0); HEMATOCRIT 27.5 % (41-53); HEMOGLOBIN 9.2 g/dL (13.5-17.5); LYMPHOCYTES # (AUTO) 1.1 K/uL (1.0-4.8); LYMPHOCYTES % (AUTO) 11.7 % (22.0-44.0); MEAN CORPUSCULAR HEMOGLOBIN 30.3 pg (26.0-34.0); MEAN CORPUSCULAR HGB CONC 33.6 G/dL (31.0-37.0); MEAN CORPUSCULAR VOLUME 90 fL (80-100); MONOCYTES # (AUTO) 0.9 K/uL (0.1-1.0); MONOCYTES % (AUTO) 10.1 % (2.0-9.0); NEUTROPHILS # (AUTO) 6.9 K/uL (1.8-7.7); NEUTROPHILS % (AUTO) 75.2 % (40.0-70.0); PLATELET COUNT (AUTO) 300 K/uL (150-450); RED BLOOD CELL COUNT(AUTO) 3.05 MIL/uL (4.50-5.90); RED CELL DISTRIBUTION WIDTH 16.6 % (11.5-14.5)
[2019-09-09 07:12] VITALS: BP 127/73
[2019-09-09 07:18] LABS: ALBUMIN 2.1 g/dL (3.4-5.0); BILIRUBIN,TOTAL 0.4 mg/dL (0.1-1.0); CALCIUM, TOTAL 7.9 mg/dL (8.8-10.5); CREATININE 1.7 mg/dL (0.60-1.30); POTASSIUM 3.9 mmol/L (3.5-5.1); TOTAL PROTEIN, SERUM 4.7 g/dL (6.4-8.2)
[2019-09-09] MEDS: PredniSONE 20 MG TABLET PO SCH (07:56)
[2019-09-09] MEDS: PANTOPRAZOLE SODIUM 40 MG/VIAL IVP SCH (07:57)
[2019-09-09] MEDS: DILTIAZEM HCL CD 120 MG ER CAPSULE PO SCH (07:57)
[2019-09-09] MEDS: DOCUSATE SODIUM 100 MG CAPSULE PO SCH (07:57)
[2019-09-09] MEDS: APIXABAN 5 MG TABLET PO SCH (07:57)
[2019-09-09] MEDS: BUDESONIDE 0.5 MG/2 ML NEB SOLUTION NEB SCH (08:33)
[2019-09-09] MEDS: QUEtiapine FUMARATE 25 MG TABLET PO SCH (08:37)
[2019-09-09] MEDS ORDERED: DIGOXIN 125 MCG TABLET PO SCH (09:00)
[2019-09-09 10:57] VITALS: BP 103/60
[2019-09-09 15:29] VITALS: BP 112/62
[2019-09-09] MEDS ORDERED: DILT120C88 PO (15:54)
[2019-09-09] MEDS ORDERED: PRED-284 PO (15:54)
[2019-09-09] MEDS ORDERED: PANT40TA25 PO (15:54)
[2019-09-09] MEDS ORDERED: QUET25TA PO (15:54)
[2019-09-09] MEDS ORDERED: IPRA4AER IH (15:54)
[2019-09-09] MEDS ORDERED: ALBU8HFA IH (15:54)
[2019-09-09] MEDS ORDERED: DIGO125T84 PO (15:54)
[2019-09-09] MEDS ORDERED: OXYGEN (15:58)
== END 2019-09-09 19:10 | disposition home or self-care (01) | DRG 871 ==
LOC: EMS 00:08 → ICU 01:30 → ICUN 09:45 → 5N 08-27 17:35
PROVIDERS: ADMIT Hospitalist; ATTEND Hospitalist
PROC: 5A09357 Assistance with Respiratory Ventilation, Less than 24 Consecutive Hours, Continuous Positive Airway Pressure (ICD-10-PCS; principal; 2019-08-25)
DX: A41.9 Sepsis, unspecified organism (principal); J69.0 Pneumonitis due to inhalation of food and vomit; R04.2 Hemoptysis; J44.1 Chronic obstructive pulmonary disease with (acute) exacerbation; N17.9 Acute kidney failure, unspecified; I48.20 Chronic atrial fibrillation, unspecified; N18.4 Chronic kidney disease, stage 4 (severe); I13.0 Hypertensive heart and chronic kidney disease with heart failure and stage 1 through stage 4 chronic kidney disease, or unspecified chronic kidney disease; I50.22 Chronic systolic (congestive) heart failure; D64.9 Anemia, unspecified; I27.20 Pulmonary hypertension, unspecified; I34.0 Nonrheumatic mitral (valve) insufficiency; T38.0X5A Adverse effect of glucocorticoids and synthetic analogues, initial encounter; Y92.89 Other specified places as the place of occurrence of the external cause; Z79.899 Other long term (current) drug therapy; Z87.891 Personal history of nicotine dependence
CPT/HCPCS: 36600; 71250; 76770; 82570; 82805; 83516; 83735; 84100; 84145; 84156; 84300; 84443; 84540; 86225; 86235; 86256; 86480; 86635; 87015; 87081; 87206; 87389; 87556; 93005; 93306; 94060; 94640; 94660; 97110; 97116; 97162; 97165; 97530; 97535; 99291; C9113; G0378; J0282; J0456; J0696; J1160; J2060; J2270; J2405; J2920; J2930; J3490; J7030; J7040; J7050; J7060